=== PATIENT | female | born 1995 | race Caucasian/White ===

== ENCOUNTER 2022-05-21 12:38 | Emergency (ER) | payer BC, SELFPAY ==
[2022-05-21 12:39] VITALS: BP 145/80; PULSE 77; RESP 18; TEMP 36.7; O2SAT 100
[2022-05-21 13:30] LABS: Appearance Urine Clear (Clear); Bilirubin Urine Negative (Negative); Blood Urine Trace-lysed (Negative); Color Urine Yellow (Yellow); Glucose Urine UA Negative (Negative); Ketones Urine Negative (Negative); Leukocyte Esterase Ur 2+ LEU/UL (Negative); Nitrate Urine Negative (Negative); Protein Urine Negative (Negative); Specific Grav Ur 1.015 (1.001-1.035); Urobilinogen Urine 0.2 mg/dL (<2.0)
[2022-05-21 13:32] LABS: Bacteria Urine Trace /hpf; Mucus Urine Rare /lpf; RBC Urine 0-2 /hpf (0-2); Squamous Epithelial Cell Urine Rare /hpf (Few)
[2022-05-21 13:38] LABS: Add Urine Microscopic? YES
[2022-05-21 13:54] LABS: Basophils Percent Auto 0.6 % (0.2-1.2); Eosinophils Percent Auto 0.6 % (0-4.4); Hematocrit 40.9 % (37.0-47.0); Hemoglobin 13.7 g/dL (12.0-15.0); Immature Granulocyte Absolute 0.02 K/mm3 (0.00-0.031); Immature Granulocyte Percent A 0.3 % (0-0.5); Lymphocytes Absolute Auto 1.28 K/mm3 (0.9-3.2); Mean Corpuscular HGB Conc 33.5 g/dl (32-36); Mean Corpuscular Hemoglobin 31.6 pg (26-34); Mean Corpuscular Volume 94.2 fl (80-100); Mean Platelet Volume 10.1 fl (7.4-10.4); Monocytes Absolute Auto 0.5 K/mm3 (0.1-0.6); Monocytes Percent Auto 7.5 % (2.6-8.5); Neutrophils Absolute Auto 4.5 K/mm3 (1.3-6.7); Platelet Count Result 209 k/mm3 (150-375); Red Blood Count 4.34 M/mm3 (4.2-5.4); White Blood Count 6.4 K/mm3 (4.5-10.0)
[2022-05-21 14:11] LABS: Anion Gap 4 mmol/L (8-16); Blood Urea Nitrogen 6 mg/dL (7-17); Calcium 8.9 mg/dL (8.4-10.2); Carbon Dioxide 28 mmol/L (22-30); Chloride 101 mmol/L (98-107); Estimated CRCL calculation 103 ml/min; Estimated Glomerular Filt Rate > 60; Glucose 84 mg/dL (65-110); Potassium 3.7 mmol/L (3.4-5.0); Sodium 133 mmol/L (137-145)
--- NOTE | 2022-05-21 14:14 | ED.FEMALEGU ---
HPI - Female Genitourinary General Chief complaint: Urogenital-Female Stated complaint: hematuria Time Seen by Provider: 05/21/22 12:52 Source: patient Mode of arrival: ambulatory Limitations: no limitations History of Present Illness HPI Narrative: This is a 27 year old female that presents to the ER for dysuria ongoing since yesterday. Reports burning pain with urination, associated with frequency. Reports last night she started to see blood in her urine. Reports bilateral dull/aching flank pain. Denies fever or vomiting. Related Data Allergies Allergy/AdvReac Type Severity Reaction Status Date / Time No Known Allergies Allergy Verified 05/21/22 14:39 Review of Systems Review of Systems: CONSTITUTIONAL: Denies fever GASTROINTESTINAL: Denies nausea, vomiting GENITOURINARY: Reports dysuria and hematuria. All systems reviewed & are unremarkable except as noted in HPI and below Exam Narrative: GENERAL: Well-appearing, well-nourished, and in no acute distress. HEAD: Normocephalic, atraumatic. EYES: EOMI. CHEST: Clear to auscultation. No respiratory distress. No wheezes rales or rhonchi HEART: Regular rate and rhythm. No murmur heard. Normal peripheral pulses. ABDOMEN: Soft, nontender, nondistended, normal active bowel sounds. Left sided CVA tenderness EXTREMITIES: Normal range of motion. No edema. SKIN: Warm, dry, no rash. NEURO: No focal deficits. Alert and oriented x3. PSYCH: Normal mood and affect Course Course Emergency Course: Patient updated on workup and agrees with plan of care Vital Signs Vital signs: Vital Signs Temperature 98.1 F 05/21/22 12:39 Pulse Rate 77 05/21/22 12:39 Respiratory Rate 18 05/21/22 12:39 Blood Pressure 145/80 H 05/21/22 12:39 Pulse Oximetry 100 05/21/22 12:39 Oxygen Delivery Room Air 05/21/22 12:39 Temperature 98.1 F 05/21/22 12:39 Pulse Rate 77 05/21/22 12:39 Respiratory Rate 18 05/21/22 12:39 Blood Pressure 145/80 H 05/21/22 12:39 Pulse Oximetry 100 05/21/22 12:39 Oxygen Delivery Room Air 05/21/22 12:39 MDM - Female Genitourinary MDM Narrative Medical decision making narrative: Patient presents to the emergency department for dysuria ongoing since yesterday. Associated with blood in the urine and flank pain. She is afebrile and nontoxic-appearing. She is not tachycardic. CBC is without leukocytosis. Metabolic panel without concerning findings. UA with evidence of infection. This will be sent for culture. Bedside test is negative. Patient did wish to be tested for STDs. Trichomonas was negative. Chlamydia, gonorrhea and genital culture sent. Patient will follow up for results. Patient was updated on work-up and agrees with plan of care. Will be started on Cefdinir for pyelonephritis. She was given warnings to return to the ER Differential Diagnosis Differential diagnosis: Likely cystitis and other (pyelonephritis) Lab Data Attestation: I reviewed the patient's lab results. 05/21/22 13:38 05/21/22 13:38 Labs: Lab Results 05/21/22 05/21/22 05/21/22 Range/Units 12:56 13:38 13:38 WBC 6.4 (4.5-10.0) K/mm3 RBC 4.34 (4.2-5.4) M/mm3 Hgb 13.7 (12.0-15.0) g/dL Hct 40.9 (37.0-47.0) % MCV 94.2 (80-100) fl MCH 31.6 (26-34) pg MCHC 33.5 (32-36) g/dl RDW 13.0 (11.5-14.5) % Plt Count 209 (150-375) k/mm3 MPV 10.1 (7.4-10.4) fl Immature Gran % (Auto) 0.3 (0-0.5) % Neut % (Auto) 71.0 (45.5-73.1) % Lymph % (Auto) 20.0 (18.3-44.2) % Emmons % (Auto) 7.5 (2.6-8.5) % Eos % (Auto) 0.6 (0-4.4) % Baso % (Auto) 0.6 (0.2-1.2) % Lymph # (Auto) 1.28 (0.9-3.2) K/mm3 [place] # (Auto) 0.5 (0.1-0.6) K/mm3 Eos # (Auto) 0.0 (0-0.3) K/mm3 Baso # (Auto) 0.0 (0.0-0.1) K/mm3 Abs Immat Gran (auto) 0.02 (0.00-0.031) K/mm3 Absolute Neuts (auto) 4.5 (1.3-6.7) K/mm3 Absolute Nucleated RBC 0.0 (0.0-0.012) K/mm3 Nu
[2022-05-21] MEDS: ACETAMINOPHEN 500 MG TABLET 1000 MG PO (14:40)
[2022-05-21] MEDS: CEFDINIR 300 MG CAPSULE PO (14:42)
[2022-05-21] MEDS: Please add drug allergy info to patient profile. XX (14:42)
== END 2022-05-21 16:35 | disposition home or self-care (01) ==
PROVIDERS: Emergency Medicine; Emergency Provider Physician Assistant
DX: N12 Tubulo-interstitial nephritis, not specified as acute or chronic (principal)
CPT/HCPCS: 36415; 80048; 81001; 81025; 85025; 87070; 87077; 87086; 87186; 87491; 87591; 87808; 99284; A9270

== ENCOUNTER 2022-08-18 04:35 | Emergency (ER) | payer BC, SELFPAY ==
[2022-08-18 04:42] VITALS: BP 113/71; PULSE 83; RESP 16; TEMP 36.8; O2SAT 100
[2022-08-18 05:15] LABS: Appearance Urine Turbid (Clear); Bacteria Urine None Seen /hpf; Bilirubin Urine Negative (Negative); Blood Urine 3+ (Negative); Color Urine Yellow (Yellow); Glucose Urine UA Negative (Negative); Ketones Urine Negative (Negative); Leukocyte Esterase Ur 3+ LEU/UL (Negative); Nitrate Urine Negative (Negative); Non Pathogenic Casts 0-2; Protein Urine 2+ mg/dL (Negative); RBC Urine 51-100 /hpf (0-2); Specific Grav Ur 1.006 (1.001-1.035); Squamous Epithelial Cell Urine None seen /hpf (Few); Urobilinogen Urine 0.2 mg/dL (<2.0); WBC Urine >100 /hpf
[2022-08-18 05:19] LABS: Add Urine Microscopic? YES
--- NOTE | 2022-08-18 05:33 | ED.GENADULT ---
HPI - General Adult General Chief complaint: Urogenital-Female Stated complaint: UTI? Time Seen by Provider: 08/18/22 05:13 History of Present Illness HPI narrative: Patient is 27-year-old female who presents emerged from with chief complaint of urinary frequency dysuria and nausea. Patient reports she had pyelonephritis before in the past and reports this evening she noticed that she started having frequent small urinations reported her urine is cloudy and there was some blood in her urine the patient reports that she has now developed pain in bilateral flanks and reports she has a little bit of nausea. Patient reports he is currently on her period. Related Data Allergies Allergy/AdvReac Type Severity Reaction Status Date / Time No Known Allergies Allergy Verified 05/21/22 14:39 Review of Systems Review of Systems: A 10 system review of systems was completed on the patient and is negative except for what is stated in the HPI. Nursing and ancillary documentation was reviewed. Exam Narrative: GENERAL: Well-appearing, well-nourished, and in no acute distress. HEAD: Normocephalic, atraumatic. EYES: PERRLA and EOMI. ENT: Nares clear, no rhinorrhea or epistaxis. Mucous membranes moist. NECK: Supple. CHEST: Clear to auscultation. No respiratory distress. HEART: Regular rate and rhythm. No murmur heard. Normal peripheral pulses. ABDOMEN: Soft, nontender, nondistended, normal active bowel sounds. Back: Mild tenderness in bilateral CVAs EXTREMITIES: Normal range of motion. No edema. SKIN: Warm, dry, no rash. NEURO: No focal deficits. Alert and oriented x3. PSYCH: Normal mood and affect. Course Vital Signs Vital signs: Vital Signs Temperature 36.8 C 08/18/22 04:42 Pulse Rate 83 08/18/22 04:42 Respiratory Rate 16 08/18/22 04:42 Blood Pressure 113/71 08/18/22 04:42 Pulse Oximetry 100 08/18/22 04:42 Oxygen Delivery Room Air 08/18/22 04:42 Temperature 36.8 C 08/18/22 04:42 Pulse Rate 83 08/18/22 04:42 Respiratory Rate 16 08/18/22 04:42 Blood Pressure 113/71 08/18/22 04:42 Pulse Oximetry 100 08/18/22 04:42 Oxygen Delivery Room Air 08/18/22 04:42 Medical Decision Making MDM Narrative Medical decision making narrative: Differential diagnosis includes UTI, pyelonephritis, sepsis, Patient is currently nontoxic appearing afebrile and not showing signs of severe sepsis. Urinalysis showed greater than 100 white blood cells in the urine patient had a negative test. Patient has an allergy to cefdinir and will be started on Bactrim given a prescription for Pyridium and will be given a prescription for Zofran. Vital Signs Vital Signs: Vital Signs Temperature 36.8 C 08/18/22 04:42 Pulse Rate 83 08/18/22 04:42 Respiratory Rate 16 08/18/22 04:42 Blood Pressure 113/71 08/18/22 04:42 Pulse Oximetry 100 08/18/22 04:42 Oxygen Delivery Room Air 08/18/22 04:42 Temperature 36.8 C 08/18/22 04:42 Pulse Rate 83 08/18/22 04:42 Respiratory Rate 16 08/18/22 04:42 Blood Pressure 113/71 08/18/22 04:42 Pulse Oximetry 100 08/18/22 04:42 Oxygen Delivery Room Air 08/18/22 04:42 Lab Data Labs: Lab Results 08/18/22 Range/Units 04:57 Urine Color Yellow (Yellow) Urine Appearance Turbid H (Clear) Urine pH 6.0 (5.0-9.0) Ur Specific [place] 1.006 (1.001-1.035) Urine Protein 2+ H (Negative) mg/dL Urine Glucose (UA) Negative (Negative) mg/dL Urine Ketones Negative (Negative) mg/dL Ur Blood (Man) 3+ H (Negative) Urine Nitrate Negative (Negative) Urine Bilirubin Negative (Negative) Urine Urobilinogen 0.2 (<2.0) mg/dL Leukocyte Esterase Rfl 3+ H (Negative) YANDY/UL Urine RBC 51-100 (0-2) /hpf Urine WBC >100 H /hpf Ur Squamous Epith Cells None seen (Few) /hpf Urine Bacteria None seen /hpf Urine Casts 0-2 UCG Bedside Result Negative
[2022-08-18 05:45] VITALS: BP 112/78; PULSE 84; RESP 16; O2SAT 100
[2022-08-18] MEDS: SULFAMETHOXAZOLE/TRIMETHOPRIM 800/160 MG DS TABLET 1 TAB PO (05:47)
[2022-08-18] MEDS: ONDANSETRON HCL ODT 4 MG TABLET PO (05:47)
== END 2022-08-18 05:50 | disposition home or self-care (01) ==
PROVIDERS: Emergency Provider Emergency Medicine
DX: N39.0 Urinary tract infection, site not specified (principal)
CPT/HCPCS: 81001; 81025; 87077; 87086; 87186; 99283; A9270

== ENCOUNTER 2022-09-05 11:27 | Outpatient (CLI) | payer BC, SELFPAY ==
--- NOTE | ~2022-09-05 | US_ITS ---
Pelvic ultrasound. Clinical History: Right-sided pelvic pain Technique: Realtime transabdominal and transvaginal scanning of the pelvis was performed. Color flow Doppler and Doppler spectral analysis were performed. Findings: The uterus is anteverted. The endometrial stripe has a thickness of 6 mm. No focal mass is identified. Probable IUD present in the residual cavity. The right ovary measures 1.4 x 3.0 x 1.6 cm. No significant right ovarian or adnexal mass is seen. The left ovary measures 1.9 x 2.7 x 2.3 cm. No significant left ovarian or adnexal mass is seen. Vascular flow is present in both ovaries on Doppler spectral analysis. There is no evidence of free fluid in the cul de sac. Impression: Probable IUD in place, otherwise unremarkable exam. Reviewed, dictated and finalized at location . Impression: Probable IUD in place, otherwise unremarkable exam.
== END 2022-09-05 11:28 | disposition home or self-care (01) ==
LOC: ANHIMG 11:31
PROVIDERS: PCP Nurse Practitioner Obstetrics & Gynecology; Visit Provider Nurse Practitioner Obstetrics & Gynecology
DX: R10.2 Pelvic and perineal pain (principal)
CPT/HCPCS: 76856

== ENCOUNTER 2022-09-07 19:43 | Emergency (ER) | payer BC, SELFPAY ==
--- NOTE | ~2022-09-07 | CT_ITS ---
EXAMINATION: CT abdomen pelvis w con DATE: 09/07/2022 21:57 INDICATION: Right lower quadrant abdominal pain. TECHNIQUE: Computed tomography (CT) of the abdomen and pelvis was performed with 100 mL Omnipaque 350 intravenous contrast. Automated exposure control and iterative reconstruction technique were employe d. The dose-length product was 335.57 mGy-cm. COMPARISON: Pelvis ultrasound 09/05/2022 FINDINGS: The visualized portions of the lung bases are clear without pneumonia or pleural effusion. The heart size is normal. No pericardial effusion. The liver, gallbladder, spleen, pancreas, adrenal glands, and kidneys are normal. There is an intrauterine device in expected position. There are no di lated loops of bowel. The appendix is normal. There is physiologic fluid in the pelvis. There is a do minant follicle in right ovary. There are no pathologically enlarged lymph nodes. The bones are unrem arkable. IMPRESSION: 1. No specific etiology for the patient's symptoms. Reviewed, dictated and finalized at location A.
[2022-09-07 19:52] VITALS: BP 119/79; PULSE 70; RESP 17; TEMP 36.8; O2SAT 100
--- NOTE | 2022-09-07 20:32 | ED.ABDPAIN ---
HPI - Abdominal Pain General Chief Complaint: Abdominal Pain Stated Complaint: abdominal pain Time Seen by Provider: 09/07/22 20:06 History of Present Illness HPI narrative: 27-year-old female here for evaluation of right lower quadrant abdominal pain x1 day. Patient states the pain is intermittent in nature but remains in her right lower quadrant. Reports some nausea but no vomiting. Also reports mild constipation. Reports chills but has not taken her temperature. Saw her OB who ordered a pelvic ultrasound that was normal. She still has her appendix and her gallbladder. No urinary symptoms. Related Data Allergies Allergy/AdvReac Type Severity Reaction Status Date / Time cefdinir Allergy Unknown Verified 09/07/22 20:00 latex Allergy Unknown Verified 09/07/22 20:00 Review of Systems Review of Systems: Gen: Denies fevers or chills Eyes: Denies eye pain or visual change ENT: Denies congestion Respiratory: Denies shortness of breath or cough CV: Denies chest pain or palpitations GI: Reports abdominal pain and nausea : denies burning, urgency, frequency or hematuria Musculoskeletal: Denies back pain or muscle pain Neuro: Denies numbness, tingling, weakness or focal weakness Skin: Denies rash Except as documented, all other systems reviewed and negative Exam Narrative: APPEARANCE: Well appearing, no pain in distress, well-nourished. Head: Normocephalic and atraumatic. EYES: PERRLA/EOMI, conjunctivae clear NOSE: No nasal drainage EARS: External ear normal in appearance THROAT: Oropharynx is clear. Mucous membranes are moist. NECK: Supple. No adenopathy, no masses. RESPIRATORY: Airway patent, respirations nonlabored. Clear to auscultation bilaterally, no rales, rhonchi, wheezing. CARDIOVASCULAR: Regular rate and rhythm without murmurs, rubs, or gallops. ABDOMINAL: There is tenderness to palpation in the right lower quadrant without rebound tenderness or guarding. Normoactive bowel sounds. Soft, nondistended. No rebound tenderness or guarding. : Cervical os is closed. There is cervical motion tenderness on examination. There is a scant amount of brown/red discharge in the vaginal vault. MUSCULOSKELETAL: Extremities are warm and well-perfused. Moves all extremities well. No edema. NEURO: Normal speech. No focal neurologic deficits. SKIN: Skin is warm and dry. No rashes. PSYCHIATRIC: Normal affect/mood.. Course Vital Signs Vital signs: Vital Signs Temperature 98.3 F 09/07/22 19:52 Pulse Rate 70 09/07/22 19:52 Respiratory Rate 17 09/07/22 19:52 Blood Pressure 119/79 09/07/22 19:52 Pulse Oximetry 100 09/07/22 19:52 Oxygen Delivery Room Air 09/07/22 19:52 Temperature 98.3 F 09/07/22 19:52 Pulse Rate 70 09/07/22 19:52 Respiratory Rate 17 09/07/22 19:52 Blood Pressure 119/79 09/07/22 19:52 Pulse Oximetry 100 09/07/22 19:52 Oxygen Delivery Room Air 09/07/22 19:52 MDM - Abdominal Pain MDM Narrative Medical decision making narrative: 27-year-old female here for evaluation of right lower quadrant abdominal pain x3 days. Oupatient US done 2 days ago was normal. She is tender to palpation in the right lower quadrant, pelvic exam revealed cervical motion tenderness with a scant amount of red/brown discharge. CT abdomen pelvis with no appendicitis but with a right adnexal tubo-ovarian structure of unclear etilogy. Spoke to the radiologist and informed him patient had a normal pelvic ultrasound 2 days ago; he does not feel this study needs to be repeated emergently. Spoke with Dr. Obregon, [employer] on-call for patient's OB, agrees with plan for treatment for PID and close outpatient follow-up. She has an anaphylactic allergy to cephalosporins which limits treatment options. patient is agreeable with this plan and is more comfortable after pain meds in the ED. Lab Data 09/07/22 20:52 09/07/22 20:52 Labs: Lab Results 09/07/22 09/07/22 Rang
[2022-09-07 21:02] LABS: Basophils Percent Auto 0.7 % (0.2-1.2); Eosinophils Absolute Auto 0.1 K/mm3 (0-0.3); Eosinophils Percent Auto 2.2 % (0-4.4); Hematocrit 42.1 % (37.0-47.0); Hemoglobin 14.1 g/dL (12.0-15.0); Immature Granulocyte Absolute 0.01 K/mm3 (0.00-0.031); Immature Granulocyte Percent A 0.2 % (0-0.5); Lymphocytes Percent Auto 28.7 % (18.3-44.2); Mean Corpuscular HGB Conc 33.5 g/dl (32-36); Mean Corpuscular Hemoglobin 31.5 pg (26-34); Mean Corpuscular Volume 94.2 fl (80-100); Mean Platelet Volume 10.1 fl (7.4-10.4); Monocytes Absolute Auto 0.4 K/mm3 (0.1-0.6); Monocytes Percent Auto 7.3 % (2.6-8.5); Neutrophils Absolute Auto 3.6 K/mm3 (1.3-6.7); Neutrophils Percent Auto 60.9 % (45.5-73.1); Platelet Count Result 210 k/mm3 (150-375); Red Blood Count 4.47 M/mm3 (4.2-5.4); Red Cell Distribution Width 13.2 % (11.5-14.5); White Blood Count 5.9 K/mm3 (4.5-10.0)
[2022-09-07 21:06] LABS: Appearance Urine Clear (Clear); Bacteria Urine None Seen /hpf; Bilirubin Urine Negative (Negative); Blood Urine 1+ (Negative); Color Urine Yellow (Yellow); Glucose Urine UA Negative (Negative); Ketones Urine Negative (Negative); Leukocyte Esterase Ur Negative LEU/UL (Negative); Nitrate Urine Negative (Negative); Non Pathogenic Casts 0-2; Protein Urine Negative (Negative); RBC Urine 0-2 /hpf (0-2); Specific Grav Ur 1.018 (1.001-1.035); Squamous Epithelial Cell Urine Occasional /hpf (Few); WBC Urine 0-5 /hpf
[2022-09-07] MEDS: KETOROLAC 15 MG/ML VIAL (*BKC) IV PUSH (21:11)
[2022-09-07] MEDS: ONDANSETRON INJ 4 MG/2 ML VIAL IV PUSH (21:11)
[2022-09-07 21:13] LABS: Add Urine Microscopic? YES
[2022-09-07 21:21] LABS: Lactic Acid Reflex 0.8 mmol/L (0.7-2.0)
[2022-09-07 21:23] LABS: Alanine Aminotransferase 11 U/L (6-35); Albumin Level 4.7 g/dL (3.5-5.1); Alkaline Phosphatase 66 U/L (38-126); Anion Gap 8 mmol/L (8-16); Aspartate Amino Transferase 31 U/L (14-36); Bilirubin,Total 0.4 mg/dL (0.2-1.3); Blood Urea Nitrogen 9 mg/dL (7-17); Calcium 8.6 mg/dL (8.4-10.2); Carbon Dioxide 29 mmol/L (22-30); Chloride 100 mmol/L (98-107); Estimated CRCL calculation 94 ml/min; Estimated Glomerular Filt Rate > 60; Glucose 83 mg/dL (65-110); Potassium 3.7 mmol/L (3.4-5.0); Sodium 137 mmol/L (137-145)
[2022-09-07] MEDS: MORPHINE SULFATE (*CRX) 2 MG/ML INJ IV PUSH (23:46)
[2022-09-08 00:14] VITALS: BP 110/57; PULSE 79; RESP 17; O2SAT 100
== END 2022-09-08 00:16 | disposition home or self-care (01) ==
PROVIDERS: Emergency Medicine; Emergency Provider Physician Assistant; PCP Nurse Practitioner Obstetrics & Gynecology
DX: N73.0 Acute parametritis and pelvic cellulitis (principal)
CPT/HCPCS: 36415; 74177; 80053; 81001; 81025; 83605; 85025; 87070; 87491; 87591; 87808; 96374; 96375; 99284; J1885; J2270; J2405; Q9967

== ENCOUNTER 2023-08-25 05:50 | Emergency (ER) | payer OTHER, SELFPAY ==
--- NOTE | ~2023-08-25 | US_ITS ---
Pelvic ultrasound. Clinical History: Left pelvic pain Technique: Realtime transabdominal and transvaginal scanning of the pelvis was performed. Color flow Doppler and Doppler spectral analysis were performed. Findings: The uterus is anteverted. The endometrial stripe has a thickness of 10 mm. No focal mass i s identified. The right ovary measures 2.1 x 3.8 x 2.2 cm. Right ovarian cyst measures 2.3 cm in diameter. The left ovary measures 4.9 x 4.8 x 5.5 cm. Left ovarian cyst measures 3.5 cm in diameter. Vascular flow present in both ovaries on Doppler spectral analysis. There is no evidence of free fluid in the cul de sac. Impression: Bilateral ovarian cysts, as above. Largest cyst measures 3.5 cm. No evidence for torsion. Reviewed, dictated and finalized at [facility]. Impression: Bilateral ovarian cysts, as above. Largest cyst measures 3.5 cm. No evidence for torsion.
[2023-08-25 05:54] VITALS: BP 120/82; PULSE 89; RESP 15; TEMP 36.3; O2SAT 100
[2023-08-25 06:21] LABS: Basophils Percent Auto 0.5 % (0.2-1.2); Eosinophils Absolute Auto 0.2 K/mm3 (0-0.3); Eosinophils Percent Auto 2.6 % (0-4.4); Hematocrit 43.7 % (37.0-47.0); Hemoglobin 14.6 g/dL (12.0-15.0); Immature Granulocyte Absolute 0.01 K/mm3 (0.00-0.031); Immature Granulocyte Percent A 0.2 % (0-0.5); Lymphocytes Absolute Auto 1.66 K/mm3 (0.9-3.2); Lymphocytes Percent Auto 29.2 % (18.3-44.2); Mean Corpuscular HGB Conc 33.4 g/dl (32-36); Mean Corpuscular Hemoglobin 30.3 pg (26-34); Mean Corpuscular Volume 90.7 fl (80-100); Mean Platelet Volume 10.5 fl (7.4-10.4); Monocytes Absolute Auto 0.4 K/mm3 (0.1-0.6); Monocytes Percent Auto 6.2 % (2.6-8.5); Neutrophils Absolute Auto 3.5 K/mm3 (1.3-6.7); Neutrophils Percent Auto 61.3 % (45.5-73.1); Platelet Count Result 224 k/mm3 (150-375); Red Blood Count 4.82 M/mm3 (4.2-5.4); White Blood Count 5.7 K/mm3 (4.5-10.0)
[2023-08-25 06:33] LABS: Alanine Aminotransferase 13 U/L (6-35); Albumin Level 4.6 g/dL (3.5-5.1); Alkaline Phosphatase 59 U/L (38-126); Anion Gap 8 mmol/L (4-12); Aspartate Amino Transferase 34 U/L (14-36); Bilirubin,Total 0.7 mg/dL (0.2-1.3); Blood Urea Nitrogen 10 mg/dL (7-17); Calcium 9.5 mg/dL (8.4-10.2); Carbon Dioxide 23 mmol/L (22-30); Chloride 107 mmol/L (98-107); Estimated CRCL calculation 102 ml/min; Estimated Glomerular Filt Rate > 60; Glucose 94 mg/dL (65-110); Lipase 62 U/L (23-300); Potassium 3.5 mmol/L (3.4-5.0); Sodium 138 mmol/L (137-145)
[2023-08-25 06:55] VITALS: BP 123/79; PULSE 83; RESP 18; O2SAT 100
--- NOTE | 2023-08-25 07:11 | ED.ABDPAIN ---
HPI - Abdominal Pain General Chief Complaint: Abdominal Pain Stated Complaint: ovarian cyst rupture Time Seen by Provider: 08/25/23 06:58 Source: patient, RN notes reviewed and old records reviewed Mode of arrival: ambulatory Limitations: no limitations History of Present Illness HPI narrative: This is a 28 year old female with history of ovarian cyst who presents for evaluation of left abdominal pain. She states she developed left lower abdominal pain yesterday morning. Her pain has been constant and it is worsening. She took tylenol yesterday for her pain. She reports her pain is worse with walking . She reports associated nausea and constipation. She denies fever, chills, dysuria, hematuria. This pain feels similar to when she had ruptured ovarian cyst 3 years ago. OBGYN is located at [facility]. She reports pain is 9/10. Related Data Allergies Allergy/AdvReac Type Severity Reaction Status Date / Time cefdinir Allergy Unknown Verified 08/25/23 06:40 latex Allergy Unknown Verified 08/25/23 06:40 Review of Systems Constitutional: Constitutional: Denies weakness Cardiovascular: Cardiovascular: Denies syncope, Denies rapid heart rate, Denies irregular heart rhythm, Denies leg edema and Denies dyspnea Respiratory: Respiratory: Denies chest congestion, Denies hemoptysis, Denies excessive phlegm production and Denies dyspnea Gastrointestinal: Gastrointestinal: Reports abdominal pain, Denies hematochezia, Reports constipation, Denies diarrhea, Reports nausea and Denies vomiting Genitourinary: Genitourinary: Denies hematuria, Denies dysuria and Reports pelvic pain Musculoskeletal: Musculoskeletal: Denies joint swelling, Denies loss of height and Denies muscle weakness Neurologic: Denies syncope, Denies focal weakness and Denies weakness PMFSH Past Medical History Medical History (Updated 08/25/23 @ 08:48 by Lanny Mathews MD) Ovarian cyst Surgical History Surgical History (Updated 08/25/23 @ 07:12 by Lanny Mathews MD) History of laparoscopy Social History Social History (Updated 08/25/23 @ 07:12 by Lanny Mathews MD) Smoking status: Never smoker Exam Const: General: no acute distress and alert Nutritional Appearance: well nourished Orientation/consciousness: patient oriented x3 HENMT: Head: normal to inspection Resp: Effort & Inspection: normal respiratory effort Auscultation: clear to auscultation bilaterally Cardio: Rate: regular rate Rhythm: regular rhythm Heart sounds: no murmurs GI: GI Palp: Yes Soft to palpation, Yes Tenderness to palpation present (GI), No Guarding due to palpation present (GI) and No Rigid due to palpation Auscultation: normal bowel sounds Back/Spine/Pelvis: Back: no CVA tenderness Skin: General skin exam: normal color Rashes: no rashes Wounds: no wounds Neuro: General: patient oriented x3, moves all extremities and CN's II-XI intact bilaterally Psych: Mental Status: mental status grossly normal Affect: normal affect Attitude: cooperative Course Reevaluation(s) Reevaluation #1: PAtient reports pain has improved to 6/10 after toradol. She would like additional pain medication. Will order morphine 4 mg IV. Date: 08/25/23 Time: 08:00 Reevaluation #2: PAtient sttes she feels better. I discussed labs and US. she has bilateral ovarian cyst without sign of rupture or torsion. She will follow up with OBGYN. She has not additional questions or concerns. Date: 08/25/23 Time: 08:47 Vital Signs Vital signs: Vital Signs Temperature 97.3 F L 08/25/23 05:54 Pulse Rate 89 08/25/23 05:54 Respiratory Rate 15 08/25/23 05:54 Blood Pressure 120/82 08/25/23 05:54 Pulse Oximetry 100 08/25/23 05:54 Oxygen Delivery Room Air 08/25/23 05:54 Temperature 98.0 F 08/25/23 09:15 Pulse Rate 68 08/25/23 09:15 Respiratory Rate 16 08/25/23 09:15 Blood Pressure 102/79 08/25/23 09:15 Pulse Oximetry 100 08/25/23 09
[2023-08-25] MEDS: SODIUM CHLORIDE 0.9% IV 1,000 ML 999 ML IV CONT (07:20)
[2023-08-25] MEDS: KETOROLAC 30 MG/ML VIAL (*BKC) IV PUSH (07:21)
[2023-08-25] MEDS: ONDANSETRON INJ 4 MG/2 ML VIAL IV PUSH (07:21)
--- NOTE | 2023-08-25 07:28 | PC.NURSE ---
Assumed care of pt. Abd soft with mild tenderness to left lower abd quad. Pt denies N/V. Pt tearful rates pain 8
[2023-08-25 07:59] LABS: Appearance Urine Cloudy (Clear); Bacteria Urine 2+ /hpf; Bilirubin Urine Negative (Negative); Blood Urine Negative (Negative); Color Urine Yellow (Yellow); Glucose Urine UA Negative (Negative); Ketones Urine Trace mg/dL (Negative); Leukocyte Esterase Ur Negative LEU/UL (Negative); Need Manual Microscopic Reviewed; Nitrate Urine Negative (Negative); Non Pathogenic Casts 0-2; Protein Urine Negative (Negative); RBC Urine 0-2 /hpf (0-2); Specific Grav Ur 1.025 (1.001-1.035); Squamous Epithelial Cell Urine Moderate /hpf (Few); Urobilinogen Urine 0.2 mg/dL (<2.0); pH Urine 5.5 (5.0-9.0)
[2023-08-25 08:01] LABS: Add Urine Microscopic? YES
[2023-08-25] MEDS: MORPHINE SULFATE (*CRX) 4 MG/ML INJ IV PUSH (08:26)
[2023-08-25 08:30] VITALS: BP 112/62; PULSE 77; RESP 16; TEMP 36.7; O2SAT 100
[2023-08-25 09:15] VITALS: BP 102/79; PULSE 68; RESP 16; TEMP 36.7; O2SAT 100
== END 2023-08-25 09:17 | disposition home or self-care (01) ==
PROVIDERS: Emergency Medicine; Emergency Provider General Practice; PCP Nurse Practitioner Obstetrics & Gynecology
DX: N83.202 Unspecified ovarian cyst, left side (principal); N83.201 Unspecified ovarian cyst, right side
CPT/HCPCS: 36415; 76856; 80053; 81001; 81025; 83690; 85025; 87086; 96361; 96374; 96375; 99284; J1885; J2270; J2405; J7030

== ENCOUNTER 2025-01-20 07:49 | Observation (INO) | payer OTHER, SELFPAY ==
[2025-01-20] VITALS (9 sets, daily range): BP systolic 108–119; BP diastolic 68–77; PULSE 76–106; RESP 16; TEMP 36.1; O2SAT 100; BMI 26.7
--- NOTE | ~2025-01-20 | US_ITS ---
EXAMINATION: US OB follow up, US OB f/u add gest DATE: 01/20/2025 12:52 INDICATION: Status post fall second trimester of a twin TECHNIQUE: Real-time ultrasound of the pelvis was performed. The interpreting radiologist was not present for the study. COMPARISON: None. FINDINGS: There are two living fetuses with thick intervening membrane consistent with dichorionic diamniotic twin . Fetus A is on the maternal left and fetus B on maternal right. Fetus A: Presentation is vertex. Placenta is anterior. cardiac activity and movement are noted. heart rate is 146 beats per minute (bpm). Normal amniotic fluid index of 11.3 cm. Normal deepest vertical pocket measurement of 4.1 cm. Fetus B: Presentation is reach. Placenta is posterior. cardiac activity and movement are noted. heart rate is 142 bpm. Normal amniotic fluid index of 9.3 cm. Normal deepest vertical pocket measurement of 4.6 cm. IMPRESSION: 1. Living twin fetuses. 2. Fetus A is on maternal left with heart rate of 146 bpm, anterior placenta and normal amniotic fluid index of 11.3 cm. 2. Fetus B is on the maternal right with heart rate of 142 bpm, posterior placenta and normal amniotic fluid index of 9.3 cm. Reviewed, dictated and finalized at location A. IMPRESSION: 1. Living twin fetuses. 2. Fetus A is on maternal left with heart rate of 146 bpm, anterior place nta and normal amniotic fluid index of 11.3 cm. 2. Fetus B is on the maternal right with heart rate of 142 bpm, posterior placenta and normal amniotic fluid index of 9.3 cm.
--- NOTE | ~2025-01-20 | XR_ITS ---
EXAMINATION: XR knee RT 3V, 01/20/2025 9:45 CDT HISTORY: FALL THIS MORNING DOWN STAIRS; RT KNEE PAIN SWELLING COMPARISON: No comparisons available. Findings: No acute fracture or malalignment. No significant degenerative changes. Soft tissues unremarkable. Impression: No acute fracture or malalignment. Reviewed, dictated and finalized at location P. Impression: No acute fracture or malalignment.
--- NOTE | ~2025-01-20 | XR_ITS ---
EXAMINATION: XR ankle RT min 3V, 01/20/2025 9:45 CDT HISTORY: FALL THIS MORNING DOWN STAIRS; RT ANKLE PAIN BRUISING COMPARISON: No comparisons available. Findings: No acute fracture or malalignment. No significant degenerative changes. Soft tissues unremarkable. Impression: No acute fracture or malalignment. Reviewed, dictated and finalized at location P. Impression: No acute fracture or malalignment.
--- NOTE | 2025-01-20 09:28 | ED.GENADULT ---
HPI - General Adult General Chief complaint: Fall Stated complaint: fall down stairs, 23 weeks preg Time Seen by Provider: 01/20/25 08:53 History of Present Illness HPI narrative: Ayanna Johnston is a 29-year-old female who is on Lexapro and vitamins, who is 1 para 0 who is 23 weeks with twins. She presents today with reports mechanical fall down about 4-5 stairs. She states that her right great toe got caught on her pain and and she fell on to her right knee sliding down and twisting her right ankle. Most of the brunt of the fall was on to the right lower extremity. She denies hitting her head she denies loss of consciousness she denies falling on her abdomen. She is complaining of pain to the right ankle right knee. She also states that she is having some lower abdominal cramping since the fall. She states that she can feel 1 of the baby's movement not the other 1 which she also has that this is been pretty normal through her so far. She gets care and with Cyndy as [place]. Related Data Home Medications ?Medication ?Instructions ?Recorded ?Confirmed ?Last Taken ?Type aspirin 81 mg tablet 81 mg PO DAILY 01/20/25 01/20/25 01/19/25 10:00 History diphenhydramine HCl 25 mg capsule 25 mg PO HS PRN sleep 01/20/25 01/20/25 01/19/25 History (Allergy (diphenhydramine)) escitalopram oxalate 10 mg tablet 10 mg PO DAILY 01/20/25 01/20/25 01/19/25 10:00 History (Lexapro) omeprazole 20 mg tablet,delayed 20 mg PO DAILY 01/20/25 01/20/25 01/19/25 10:00 History release vitamins no.68-iron 28 1 cap PO DAILY 01/20/25 01/20/25 01/19/25 10:00 History mg-folate no.6 1 mg-dha 400 mg capsule Allergies Allergy/AdvReac Type Severity Reaction Status Date / Time cefdinir Allergy Unknown Verified 01/20/25 11:39 latex Allergy Unknown Verified 01/20/25 11:39 Review of Systems Review of Systems: All systems reviewed & are unremarkable except as noted in HPI and below PMFSH Past Medical History Medical History Ovarian cyst Surgical History Surgical History History of laparoscopy Social History Social History Smoking status: Never smoker Lack of Transportation: No Lack of Food: Never True Current Housing: I Have Housing Concerned About Future Housing: No Difficulty Paying Gas/Electric Bills: No Difficulty Paying for Meds: No Currently Unemployed: No Education: High School Diploma/GED Difficulty w/ Childcare or Family Care: No Exam Narrative: GENERAL: Well-appearing, well-nourished, and in no acute distress. HEAD: Normocephalic, atraumatic. EYES: PERRLA and EOMI. ENT: Nares clear, no rhinorrhea or epistaxis. Mucous membranes moist. Oropharynx without tonsillar hypertrophy exudate or other lesions. NECK: Supple. No adenopathy or masses. No carotid bruits or JVD CHEST: Clear to auscultation. No respiratory distress. No wheezes rales or rhonchi HEART: Regular rate and rhythm. No murmur heard. Normal peripheral pulses. ABDOMEN: normal active bowel sounds, with twins EXTREMITIES: Normal range of motion. Right lower extremity noted to have some ecchymosis to right knee right ankle. Pulses present range of motion intact no obvious deformity noted on exam. SKIN: Warm, dry, no rash. NEURO: No focal deficits. Alert and oriented x3. PSYCH: Normal mood and affect. Course Vital Signs Vital signs: Vital Signs Temperature 36.1 C L 01/20/25 07:54 Pulse Rate 106 H 01/20/25 07:54 Respiratory Rate 16 01/20/25 07:54 Blood Pressure 119/68 01/20/25 07:54 Pulse Oximetry 100 01/20/25 07:54 Oxygen Delivery Room Air 01/20/25 07:54 Temperature 36.1 C L 01/20/25 07:54 Pulse Rate 86 01/20/25 11:31 Respiratory Rate 16 01/20/25 07:54 Blood Pressure 108/73 01/20/25 11:31 Pulse Oximetry 100 01/20/25 11:32 Oxygen Delivery Room Air 01/20/25 11:49 Medical Decision Making MDM Narrative Medical decision making narrative: 29-year-old female who is 23 weeks 1 para 0 with twin who had a mechanical fall down the stairs today. She states that she has having some lower abdominal cramping pain to right lower extremity. Ob was consulted for nonstress exam which is getting set up at this time patient denies any vaginal bleeding She took Tylenol prior to arrival Plan to check x-ray of right lower extremity and likely send OB for further monitoring. Ob came down for nonstress test for the baby monitoring, X-ray of knee and ankle are negative for any acute bone findings of likely right ankle sprain will place Jesús wrap continue Tylenol collier therapy and should improve. After resting ice and compression if continued pain may consider repeat imaging. Patient will be escorted from the emergency room to OB for further ultrasound evaluation post fall. Medical Records Medical records reviewed: Yes I reviewed the external patient's medical records. Vital Signs Vital Signs: Vital Signs Temperature 36.1 C L 01/20/25 07:54 Pulse Rate 106 H 01/20/25 07:54 Respiratory Rate 16 01/20/25 07:54 Blood Pressure 119/68 01/20/25 07:54 Pulse Oximetry 100 01/20/25 07:54 Oxygen Delivery Room Air 01/20/25 07:54 Temperature 36.1 C L 01/20/25 07:54 Pulse Rate 86 01/20/25 11:31 Respiratory Rate 16 01/20/25 07:54 Blood Pressure 108/73 01/20/25 11:31 Pulse Oximetry 100 01/20/25 11:32 Oxygen Delivery Room Air 01/20/25 11:49 vitals reviewed Lab Data Lab results reviewed: Yes I reviewed the patient's lab results. 01/20/25 09:42 01/20/25 09:42 Labs: Lab Results 01/20/25 01/20/25 Range/Units 09:31 09:42 WBC 7.6 (4.5-10.0) K/mm3 RBC 3.53 L (4.2-5.4) M/mm3 Hgb 10.4 L D (12.0-15.0) g/dL Hct 31.3 L (37.0-47.0) % MCV 88.7 (80-100) fl MCH 29.5 (26-34) pg MCHC 33.2 (32-36) g/dl RDW 13.1 (11.5-14.5) % Plt Count 212 (150-375) k/mm3 MPV 10.5 H (7.4-10.4) fl Immature Gran % (Auto) 0.8 H (0-0.5) % Neut % (Auto) 73.4 H (45.5-73.1) % Lymph % (Auto) 17.5 L (18.3-44.2) % [place] % (Auto) 7.3 (2.6-8.5) % Eos % (Auto) 0.7 (0-4.4) % Baso % (Auto) 0.3 (0.2-1.2) % Lymph # (Auto) 1.32 (0.9-3.2) K/mm3 [place] # (Auto) 0.6 (0.1-0.6) K/mm3 Eos # (Auto) 0.1 (0-0.3) K/mm3 Baso # (Auto) 0.0 (0.0-0.1) K/mm3 Abs Immat Gran (auto) 0.06 H (0.00-0.031) K/mm3 Absolute Neuts (auto) 5.6 (1.3-6.7) K/mm3 Absolute Nucleated RBC 0.000 (0.0-0.012) K/mm3 Nucleated RBC % 0.0 (0.0-0.2) % PT 12.8 (11.1-14.7) Seconds INR 0.9 APTT 24.9 (22.3-36.8) Seconds Sodium 132 L (137-145) mmol/L Potassium 4.0 (3.4-5.0) mmol/L Chloride 104 (98-107) mmol/L Carbon Dioxide 22 (22-30) mmol/L Anion Gap 6 (4-12) mmol/L BUN 10 (7-17) mg/dL Creatinine 0.50 L (0.7-1.0) mg/dL Estim Creat Clear Calc 154 ml/min Estimated GFR > 60 (59 - ) Glucose 76 (65-110) mg/dL Calcium 9.0 (8.4-10.2) mg/dL Total Bilirubin 0.2 (0.2-1.3) mg/dL AST 28 (14-36) U/L ALT 13 (6-35) U/L Alkaline Phosphatase 83 (38-126) U/L Total Protein 6.8 (6.3-8.2) g/dL Albumin 3.5 (3.5-5.1) g/dL Urine Color Yellow (Yellow) Urine Appearance Clear (Clear) Urine pH 7.5 (5.0-9.0) Ur Specific [place] 1.007 (1.001-1.035) Urine Protein Negative (Negative) mg/dL Urine Glucose (UA) Negative (Negative) mg/dL Urine Ketones Negative (Negative) mg/dL Ur Blood (Man) Negative (Negative) Urine Nitrate Negative (Negative) Urine Bilirubin Negative (Negative) Urine Urobilinogen 0.2 (<2.0) mg/dL Leukocyte Esterase Rfl Negative (Negative) YNADY/UL Imaging Data Radiologist's impression: Impressions Ankle X-Ray 01/20/25 10:00 Impression: No acute fracture or malalignment. Knee X-Ray 01/20/25 10:00 Impression: No acute fracture or malalignment. Discharge Plan Discharge Clinical Impression: Fall Qualifiers: Encounter type: initial encounter Qualified Code(s): W19.XXXA - Unspecified fall, initial encounter Ankle sprain Qualifiers: Encounter type: initial encounter Involved ligament of ankle: unspecified ligament Laterality: right Qualified Code(s): S93.401A - Sprain of unspecified ligament of right ankle, initial encounter Acute knee pain Qualifiers: Laterality: right Qualified Code(s): M25.561 - Pain in right knee Patient Disposition: Home Condition: Stable
[2025-01-20 09:40] LABS: Add Urine Microscopic? NO; Appearance Urine Clear (Clear); Glucose Urine UA Negative (Negative); Leukocyte Esterase Ur Negative LEU/UL (Negative); Nitrate Urine Negative (Negative); Specific Grav Ur 1.007 (1.001-1.035)
[2025-01-20 09:52] LABS: Hematocrit 31.3 % (37.0-47.0); Hemoglobin 10.4 g/dL (12.0-15.0); Immature Granulocyte Percent A 0.8 % (0-0.5); Lymphocytes Absolute Auto 1.32 K/mm3 (0.9-3.2); Mean Corpuscular HGB Conc 33.2 g/dl (32-36); Mean Corpuscular Hemoglobin 29.5 pg (26-34); Mean Corpuscular Volume 88.7 fl (80-100); Nucleated Red Blood Cells Absolute Auto 0.000 K/mm3 (0.0-0.012); Nucleated Red Blood Cells Perc 0.0 % (0.0-0.2); Platelet Count Result 212 k/mm3 (150-375); Red Blood Count 3.53 M/mm3 (4.2-5.4); White Blood Count 7.6 K/mm3 (4.5-10.0)
[2025-01-20 10:05] LABS: INR 0.9; Partial Thromboplastin Time 24.9 Seconds (22.3-36.8); Prothrombin Time 12.8 Seconds (11.1-14.7)
[2025-01-20 10:08] LABS: Alanine Aminotransferase 13 U/L (6-35); Albumin Level 3.5 g/dL (3.5-5.1); Alkaline Phosphatase 83 U/L (38-126); Anion Gap 6 mmol/L (4-12); Aspartate Amino Transferase 28 U/L (14-36); Bilirubin,Total 0.2 mg/dL (0.2-1.3); Blood Urea Nitrogen 10 mg/dL (7-17); Calcium 9.0 mg/dL (8.4-10.2); Carbon Dioxide 22 mmol/L (22-30); Chloride 104 mmol/L (98-107); Estimated CRCL calculation 154 ml/min; Estimated Glomerular Filt Rate > 60; Glucose 76 mg/dL (65-110); Potassium 4.0 mmol/L (3.4-5.0); Sodium 132 mmol/L (137-145); Total Protein 6.8 g/dL (6.3-8.2)
--- NOTE | 2025-01-20 11:28 | OBADM ---
This patient, Ayanna Farley, admitted to the OB room 115 for observation. Patient/family oriented to hospital policies and general routines including ID bracelet, bed and alarms, visiting hours, pain management, procedures, bathroom and other care routines, personal items, smoking policy, room service/diet, and visiting hours. Patient/Family are encouraged to report perceived risks to care and to ask questions if they do not understand what they are told or what they should do.
--- NOTE | 2025-02-04 03:04 | P.PNOB_ITS ---
OB - Triage/Final Diagnosis Visit Information Comments/Additional reasons for admission: I have assessed the risk for this patient, Ayanna Farley, and determined that she would benefit from observation care. Evaluation Laboratory results: Laboratory Tests 01/20/25 01/20/25 09:31 09:42 WBC 7.6 RBC 3.53 L Hgb 10.4 L D Hct 31.3 L MCV 88.7 MCH 29.5 MCHC 33.2 RDW 13.1 Plt Count 212 MPV 10.5 H Immature Gran % (Auto) 0.8 H Neut % (Auto) 73.4 H Lymph % (Auto) 17.5 L [place] % (Auto) 7.3 Eos % (Auto) 0.7 Baso % (Auto) 0.3 Lymph # (Auto) 1.32 [place] # (Auto) 0.6 Eos # (Auto) 0.1 Baso # (Auto) 0.0 Abs Immat Gran (auto) 0.06 H Absolute Neuts (auto) 5.6 Absolute Nucleated RBC 0.000 Nucleated RBC % 0.0 PT 12.8 INR 0.9 APTT 24.9 Sodium 132 L Potassium 4.0 Chloride 104 Carbon Dioxide 22 Anion Gap 6 BUN 10 Creatinine 0.50 L Estim Creat Clear Calc 154 Estimated GFR > 60 Glucose 76 Calcium 9.0 Total Bilirubin 0.2 AST 28 ALT 13 Alkaline Phosphatase 83 Total Protein 6.8 Albumin 3.5 Urine Color Yellow Urine Appearance Clear Urine pH 7.5 Ur Specific [place] 1.007 Urine Protein Negative Urine Glucose (UA) Negative Urine Ketones Negative Ur Blood (Man) Negative Urine Nitrate Negative Urine Bilirubin Negative Urine Urobilinogen 0.2 Leukocyte Esterase Rfl Negative Final Diagnosis (1) Fall: Qualifiers: Encounter type: initial encounter Qualified Code(s): W19.XXXA - Unspecified fall, initial encounter Code(s): W19.XXXA - Unspecified fall, initial encounter Status: Acute
== END 2025-01-20 13:50 | disposition home or self-care (01) ==
LOC: ANHED 10:29 → ANHOBPP 11:05 → ANHLDR 15:42
PROVIDERS: Admitting Provider Obstetrics & Gynecology; Emergency Provider Nurse Practitioner Family; Visit Provider Obstetrics & Gynecology
DX: S93.401A Sprain of unspecified ligament of right ankle, initial encounter (principal); O26.892 Other specified pregnancy related conditions, second trimester; Z3A.22 22 weeks gestation of pregnancy; W19.XXXA Unspecified fall, initial encounter; M25.561 Pain in right knee; Z79.82 Long term (current) use of aspirin; Z87.42 Personal history of other diseases of the female genital tract
CPT/HCPCS: 36415; 73562; 73610; 76816; 80053; 81003; 85025; 85610; 85730; 99285; G0378; G0379